=== PATIENT | female | born 1990 | race Caucasian/White ===

== ENCOUNTER 2017-07-19 18:12 | Emergency (ER) | payer BC, SELFPAY ==
[2017-07-19 19:45] LABS: Urine Blood 2+ (NEG); Urine Glucose NEGATIVE (NEG); Urine Protein NEGATIVE (NEG); Urine Specific Gravity >1.030 (1.005-1.030); Urine pH 5.5 (5.0-7.0)
[2017-07-19] MEDS ORDERED: NA CHLORIDE 0.9% 500 ML ONE (20:35)
[2017-07-19 20:37] LABS: Absolute Lymphocytes (CBC) 2.7 K/uL (0.7-4.9); Absolute Monocytes 0.6 K/uL (0.1-1.3); Absolute Neutrophil 8.1 K/uL (1.8-8.0); Basophils % 0.5 % (0-1.3); Eosinophils % 1.2 % (0-4.4); Hematocrit 36.7 % (36.0-45.0); MCH 29.3 pg (27.0-35.0); MPV 8.1 fL (7.6-11.3); Monocytes % 5.4 % (3.3-12.3); RBC Red Blood Cell Count 4.38 M/uL (3.86-4.86)
[2017-07-19 20:39] LABS: Bicarbonate 29 mEq/L (21-31); Glucose Level 101 mg/dL (65-120); Potassium 3.6 mEq/L (3.6-5.0); Sodium Level 140 mEq/L (135-145)
[2017-07-19 20:40] LABS: BUN Blood Urea Nitrogen 10 mg/dL (6-20)
[2017-07-19 21:25] LABS: HCG, Quantitative 18.3 mIU/mL (<5)
--- NOTE | 2017-07-19 22:07 | ER ---
Nurse's Notes [facility] Name: Luna Jacobson Age: 27 yrs Sex: Female : 1990 Arrival Date: 07/19/2017 Time: 18:19 Bed 18 Private MD: Diagnosis: Spontaneous Presentation: 07/19 18:21 Presenting complaint: Patient states: I think I'm having a miscarriage, LMP June 12. ch I had a negative upt, but a postive HCG at the [facility] in [place]. I started having bright red bleeding yesterday, I have gone thru 4 or 6 pads since yesterday. slight cramping ruby lower abdomen. Transition of care: patient was not received from another setting of care. Onset of symptoms was July 18, 2017 at 09:00. Initial Sepsis Screen: Does the patient meet any 2 criteria? No. Patient's initial sepsis screen is negative. Does the patient have a suspected source of infection? No. Patient's initial sepsis screen is negative. Care prior to arrival: None. 18:21 Method Of Arrival: Ambulatory 18:21 Acuity: FLO 3 Triage Assessment: 18:23 General: Appears in no apparent distress. comfortable, Behavior is calm, cooperative, ch appropriate for age. Pain: Complains of pain in abdomen and pelvis Pain currently is 0 out of 10 on a pain scale. at worst was 3 out of 10 on a pain scale. : Reports vaginal bleeding that is bright red. 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 - Social history:: Smoking status: Smoking status: Patient/guardian denies using tobacco. - Family history:: not pertinent. - Hospitalizations: : No recent hospitalization is reported. Screenin:21 Abuse screen: Denies threats or abuse. Denies injuries from another. Nutritional aj1 screening: No deficits noted. Tuberculosis screening: No symptoms or risk factors identified. Fall Risk None identified. Assessment: 20:21 General: Appears in no apparent distress. comfortable, Behavior is calm, cooperative, aj1 appropriate for age. Pain: Denies pain. Neuro: Level of Consciousness is awake, alert, obeys commands, Oriented to person, place, time, situation, Speech is normal, Facial symmetry appears normal. Cardiovascular: Patient's skin is warm and dry. Respiratory: Airway is patent Respiratory effort is even, unlabored, Respiratory pattern is regular, symmetrical. GI: No signs and/or symptoms were reported involving the gastrointestinal system. : Reports vaginal bleeding that is bright red. EENT: No signs and/or symptoms were reported regarding the EENT system. Derm: No signs and/or symptoms reported regarding the dermatologic system. Skin is pink, warm \T\ dry. normal. Musculoskeletal: No signs and/or symptoms reported regarding the musculoskeletal system. Circulation, motion, and sensation intact. 21:30 Reassessment: Patient appears in no apparent distress at this time. No changes from aj1 previously documented assessment. Patient and/or family updated on plan of care and expected duration. Pain level reassessed. Patient is alert, oriented x 3, equal unlabored respirations, skin warm/dry/pink. Vital Signs: 18:23 BP 138 / 89; Pulse 120; Resp 14; Temp 97.6; Pulse Ox 100% on R/A; Weight 90.72 kg; ch Height 4 ft. 11 in. (149.86 cm); Pain 0/10; 21:36 BP 134 / 85; Pulse 113; Resp 16; Pulse Ox 99% on R/A; dh3 18:23 Body Mass Index 40.39 (90.72 kg, 149.86 cm) ED Course: 18:19 Patient arrived in ED. sb2 18:23 Triage completed. 18:23 Arm band placed on right wrist. Patient placed in waiting room. 19:16 Urine collected: clean catch specimen, clear. dh3 19:34 Darian Oreilly MD is Attending Physician. rn 20:08 Melissa Delgado RN is Primary Nurse. aj1 20:21 Patient has correct armband on for positive identification. Placed in gown. Bed in low aj1 position. Call light in reach. Pulse ox on. NIBP on. 20:21 No provider procedures requiring assistance completed. Inserted saline lock: 22 gauge aj1 in right antecubital area, using aseptic technique. Blood collected. 22:13 IV discontinued, intact, bleeding controlled, No redness/swelling at site. Pressure ed1 dressing applied. Administered Medications: 20:52 Drug: NS 0.9% 500 ml Route: IV; Rate: bolus; Site: right antecubital; aj1 Outcome: 22:06 Discharge ordered by . rn 22:13 Discharged to home ambulatory. ed1 22:13 Condition: good 22:13 Discharge instructions given to patient, Instructed on discharge instructions, follow up and referral plans. Demonstrated understanding of instructions, follow-up care. 22:13 Patient left the ED. ed1 Signatures: Shayy Francisco, RN RN Melissa Liz RN RN aj1 Darian Oreilly MD MD rn Riggs, Erika, INSTRUCTIONAL MANAGER INSTRUCTIONAL MANAGER ed1 Tamy Mitchell 3 Simi Barnes sb2
--- NOTE | 2017-07-19 22:07 | EDPHYS ---
Physician Documentation [facility] Name: Luna Jacobson Age: 27 yrs Sex: Female : 1990 Arrival Date: 07/19/2017 Time: 18:19 Bed 18 Private MD: ED Physician Darian Oreilly HPI: 07/19 20:04 This 27 yrs old Female presents to ER via Ambulatory with complaints of rn Vaginal Bleeding, + Preg <12wks. 20:04 The patient presents to the emergency department with vaginal bleeding, that is light, rn with no clots. The estimated gestational age is 6 weeks. course: care: private OB physician, Ultrasound: the patient has not had an ultrasound, Risk/complications: no obvious risks or complications are appreciated. Associated signs and symptoms: Pertinent positives: vaginal bleeding, Pertinent negatives: frequency, seizure, shortness of breath. The patient has not experienced similar symptoms in the past. Reports at approx 5-6 weeks by LMP, + lower abd mild cramping, midline, assoc with vaginal bleeding, similar to regular period, no lightheadedness, no clots, seen by OB 2 days ago, beta hcg in 30s, thinks having miscarriage, here for repeat beta. No hx of ectopic. . 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 - Social history:: Smoking status: Smoking status: Patient/guardian denies using tobacco. - Family history:: not pertinent. - Hospitalizations: : No recent hospitalization is reported. ROS: 20:04 Constitutional: Negative for fever, chills, and weight loss, Eyes: Negative for injury, rn pain, redness, and discharge, Neck: Negative for injury, pain, and swelling, Cardiovascular: Negative for chest pain, palpitations, and edema, Respiratory: Negative for shortness of breath, cough, wheezing, and pleuritic chest pain, Abdomen/GI: Negative for nausea, vomiting, diarrhea, and constipation, : Negative for injury, discharge, and swelling, MS/Extremity: Negative for injury and deformity, Skin: Negative for injury, rash, and discoloration, Neuro: Negative for headache, weakness, numbness, tingling, and seizure. Exam: 20:04 Constitutional: This is a well developed, well nourished patient who is awake, alert, rn and in no acute distress. Head/Face: Normocephalic, atraumatic. Eyes: Pupils equal round and reactive to light, extra-ocular motions intact. Lids and lashes normal. Conjunctiva and sclera are non-icteric and not injected. Cornea within normal limits. Periorbital areas with no swelling, redness, or edema. Abdomen/GI: Soft, non-tender, with normal bowel sounds. No distension or tympany. No guarding or rebound. No evidence of tenderness throughout. Back: No spinal tenderness. No costovertebral tenderness. Full range of motion. Skin: Warm, dry with normal turgor. Normal color with no rashes, no lesions, and no evidence of cellulitis. MS/ Extremity: Pulses equal, no cyanosis. Neurovascular intact. Full, normal range of motion. Equal circumference. Neuro: Awake and alert, GCS 15, oriented to person, place, time, and situation. Cranial nerves II-XII grossly intact. Motor strength 5/5 in all extremities. Sensory grossly intact. Cerebellar exam normal. Normal gait. Vital Signs: 18:23 BP 138 / 89; Pulse 120; Resp 14; Temp 97.6; Pulse Ox 100% on R/A; Weight 90.72 kg; ch Height 4 ft. 11 in. (149.86 cm); Pain 0/10; 21:36 BP 134 / 85; Pulse 113; Resp 16; Pulse Ox 99% on R/A; dh3 18:23 Body Mass Index 40.39 (90.72 kg, 149.86 cm) ch MDM: 19:34 Patient medically screened. rn 22:05 Differential diagnosis: Data reviewed: vital signs, nurses notes, lab test result(s), rn and as a result, I will discharge patient. Counseling: I had a detailed discussion with the patient and/or guardian regarding: the historical points, exam findings, and any diagnostic results supporting the discharge/admit diagnosis, lab results, the need for outpatient follow up, to return to the emergency department if symptoms worsen or persist or if there are any questions or concerns that arise at home. Special discussion: I discussed with the patient/guardian in detail that at this point there is no indication for admission to the hospital. It is understood, however, that if the symptoms persist or worsen the patient needs to return immediately for re-evaluation. Based on the history and exam findings, there is no indication for further emergent testing or inpatient evaluation. I discussed with the patient/guardian the need to see the OB Gyne specialist for further evaluation of the symptoms. 07/19 19:15 Order name: Urine Dipstick--Ancillary (enter results) [facility] 07/19 19:15 Order name: Urine --Ancillary (enter results) [facility] 07/19 19:43 Order name: Quantitative Hcg; Complete Time: :45 07/19 19:43 Order name: Abo/rh Typing; Complete Time: :45 rn 07/19 19:43 Order name: Basic Metabolic Panel; Complete Time: :45 07/19 19:43 Order name: CBC with Diff; Complete Time: 20:43 rn 07/19 19:43 Order name: IV Saline Lock; Complete Time: 20: rn 07/19 19:43 Order name: Labs collected and sent; Complete Time: 20: rn 07/19 19:43 Order name: NPO; Complete Time: 20: rn 07/19 19:43 Order name: Urine Dipstick-Ancillary (obtain specimen); Complete Time: 20: rn 07/19 21:11 Order name: ABO/RH no charge; Complete Time: 21:20 EDMS Administered Medications: 20:52 Drug: NS 0.9% 500 ml Route: IV; Rate: bolus; Site: right antecubital; aj1 Disposition: 07/19/17 22:06 Discharged to Home. Impression: Spontaneous . - Condition is Stable. - Discharge Instructions: Miscarriage. - Medication Reconciliation Form, Thank You Letter, Antibiotic Education, Prescription Opioid Use form. - Follow up: Private Physician; When: 2 - 3 days. - Problem is new. - Symptoms have improved. Signatures: Dispatcher [employer] EDMS Shayy Francisco RN RN ch Johnson, Angela, RN RN aj1 Darian Oreilly MD MD rn Riggs, Erika, LVN MAINTENANCE AND REPAIR WORKER ed1 Corrections: (The following items were deleted from the chart) 22:13 22:06 07/19/2017 22:06 Discharged to Home. Impression: Spontaneous . Condition ed1 is Stable. Forms are Medication Reconciliation Form, Thank You Letter, Antibiotic Education, Prescription Opioid Use. Follow up: Private Physician; When: 2 - 3 days. Problem is new. Symptoms have improved. rn
== END 2017-07-19 22:13 | disposition home or self-care (01) ==
LOC: ER 18:12
DX: O03.9 Complete or unspecified spontaneous abortion without complication (principal)
CPT/HCPCS: 36415; 80048; 81003; 81025; 84702; 85025; 86900; 86901; 99284